=== PATIENT | female | born 1990 | race Caucasian/White ===

== ENCOUNTER 2016-12-24 19:36 | Emergency (ER) | payer MEDICAID, OTHER ==
[~2016-12-24] VITALS: Ht 167.6 cm; Wt 67.5 kg
[2016-12-24 19:40] VITALS: Ht 167.6 cm; Wt 67.5 kg
[2016-12-24] MEDS ORDERED: IBUPROFEN 600 MG TAB PO ONE (22:00)
--- NOTE | 2016-12-24 23:35 | RADRPT ---
PROCEDURE: XR ribs . CLINICAL INDICATION: Left rib pain. TECHNIQUE: AP and oblique views of the left ribs were obtained. COMPARISON: Plain film chest dated 03/22/2012. FINDINGS: The bone mineralization is normal. There is no acute fracture or subluxation. The soft tissues are unremarkable. IMPRESSION: No acute fracture. RPTAT: [facility] Physician Mavis Date Time Electronically viewed and signed by Physician Mavis on 12/24/2016 23:35 RS/
--- NOTE | 2016-12-24 23:55 | RADRPT ---
PROCEDURE: CERVICAL SPINE - 3 VIEWS CLINICAL INDICATION: 26-year-old female with neck pain. TECHNIQUE: AP, lateral and odontoid views of the cervical spine were performed. The images were re viewed on a PACS workstation. COMPARISON: None. FINDINGS: The prevertebral soft tissue is unremarkable. There is a normal cervical lordosis. The alignment condon s a normal appearance. No evidence of acute cervical spine fracture or subluxation is seen. The odon toid and lateral masses of C1 appear intact. IMPRESSION: Unremarkable cervical spine radiographs. .Momo Ness MD, MD Date Time Electronically viewed and signed by .Momo Ness MD, on 12/24/2016 23:55 .M/
[2016-12-25] MEDS ORDERED: CYCL-319 PO (00:01)
[2016-12-25 01:10] VITALS: BP 120/62; PULSE 89; RESP 18; TEMP 99.4
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
== END 2016-12-25 01:12 | disposition home or self-care (01) ==
LOC: FTE 19:36
DX: S19.9XXA Unspecified injury of neck, initial encounter (principal); F17.210 Nicotine dependence, cigarettes, uncomplicated; Y08.89XA Assault by other specified means, initial encounter; Y92.9 Unspecified place or not applicable
CPT/HCPCS: 71100; 72040; Z7610

== ENCOUNTER 2017-01-17 12:41 | Emergency (ER) | payer SELFPAY ==
[~2017-01-17] VITALS: Wt 68.0 kg
[~2017-01-17 12:41] MED LIST: CYCL-319 PO
== END 2017-01-17 15:50 | disposition left against medical advice (07) ==
LOC: FTE 12:41
DX: Z53.21 Procedure and treatment not carried out due to patient leaving prior to being seen by health care provider (principal)

== ENCOUNTER 2017-01-19 15:54 | Emergency (ER) | payer OTHER ==
[~2017-01-19] VITALS: Ht 167.6 cm; Wt 62.5 kg
[2017-01-19 15:55] VITALS: Ht 167.6 cm; Wt 62.5 kg
[2017-01-19] MEDS ORDERED: morphine 4 MG/ML VIAL IV STA (16:09)
[2017-01-19] MEDS ORDERED: SOD CHLORIDE 0.9% 1,000 ML IV STA (16:09)
[2017-01-19] MEDS ORDERED: ONDANSETRON 4 MG INJ IV STA (16:09)
[2017-01-19 16:44] LABS: BASOPHIL # 0.1 10^3/ul (0.0-0.1); BASOPHILS % 0.9 % (0.0-2.0); EOSINOPHILS # 0.2 10^3/ul (0.0-0.5); EOSINOPHILS % 2.2 % (0.0-7.0); HEMATOCRIT 43.1 % (37.0-47.0); HEMOGLOBIN 14.8 g/dl (12.0-16.0); LYMPHOCYTES # 2.1 10^3/ul (0.8-2.9); LYMPHOCYTES % 24.2 % (15.0-51.0); MEAN CORPUSCULAR HEMOGLOBIN 32.2 pg (29.0-33.0); MEAN CORPUSCULAR HGB CONC 34.3 g/dl (32.0-37.0); MEAN CORPUSCULAR VOLUME 93.9 fl (82.0-101.0); MEAN PLATELET VOLUME 9.5 fl (7.4-10.4); MONOCYTE # 0.9 10^3/ul (0.3-0.9); MONOCYTES % 9.9 % (0.0-11.0); NEUTROPHIL # 5.4 10^3/ul (1.6-7.5); NEUTROPHILS % 62.5 % (39.0-77.0); PLATELET COUNT 322 10^3/UL (140-415); RED BLOOD COUNT 4.59 10^6/ul (4.20-5.40); WHITE BLOOD COUNT 8.6 10^3/ul (4.8-10.8)
[2017-01-19 16:50] LABS: ADD UMIC YES; UR ASCORBIC ACID NEGATIVE (NEGATIVE); UR BILIRUBIN (Dip) NEGATIVE (NEGATIVE); UR BLOOD (Dip) NEGATIVE (NEGATIVE); UR CLARITY CLEAR (CLEAR); UR COLOR YELLOW (YELLOW); UR GLUCOSE (Dip) NEGATIVE (NEGATIVE); UR KETONES (Dip) NEGATIVE (NEGATIVE); UR LEUKOCYTE ESTERASE (Dip) NEGATIVE Leu/ul (NEGATIVE); UR MUCUS FEW /HPF (NONE SEEN); UR NITRITE (Dip) NEGATIVE (NEGATIVE); UR RBC 3 /HPF (0-5); UR TOTAL PROTEIN (Dip) 1+ mg/dl (NEGATIVE); UR UROBILINOGEN (Dip) NEGATIVE (NEGATIVE)
[2017-01-19 17:09] LABS: ALBUMIN 4.8 g/dl (3.3-4.9); ALBUMIN/GLOBULIN RATIO 1.37; BILIRUBIN,INDIRECT 0.2 mg/dl (0-1.1); BILIRUBIN,TOTAL 0.2 mg/dl (0.2-1.3); CALCIUM 9.8 mg/dl (8.4-10.2); CREATININE 0.86 mg/dl (0.44-1.00); POTASSIUM 4.1 mmol/L (3.5-5.1); TOTAL PROTEIN 8.3 g/dl (6.1-8.1)
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
[2017-01-19] MEDS ORDERED: ONDA4TAB14 PO (18:43)
[2017-01-19] MEDS ORDERED: OXYC-279 PO (18:43)
[2017-01-19] MEDS ORDERED: NAPR-688 PO (18:43)
[2017-01-19] MEDS ORDERED: DIPH1TAB PO (18:44)
--- NOTE | 2017-01-19 18:47 | ERD ---
ER Documentation Chief Complaint Date/Time DATE: 01/19/17 TIME: 18:44 Chief Complaint 5/10 abd pain with N/V/D x 3 days HPI This 27-year-old female presented for upper abdominal pain along with nausea vomiting and diarrhea for 3 days. States she also had similar symptoms a week ago as well. Vomiting is nonbloody and nonbilious. Pain is described as a crampy pain. ROS All systems reviewed and are negative except as per history of present illness. Medications Home Meds Active Scripts Diphenoxylate HCl/Atropine (Lomotil 2.5-0.025 mg Tablet) 1 Each Tablet, 1 TAB PO Q6H Y for DIARRHEA, #10 TAB Prov:AIDEEFREEDOM DO 01/19/17 Ondansetron (Ondansetron Odt) 4 Mg Tab.rapdis, 4 MG PO Q6H Y for NAUSEA AND/OR VOMITING, #10 TAB Prov:AIDEEFREEDOM DO 01/19/17 Naproxen* (Naproxen*) 500 Mg Tablet, 500 MG PO BID, #20 TAB Prov:AIDEEFREEDOM DO 01/19/17 Oxycodone HCl/Acetaminophen (Percocet 5-325 mg Tablet) 1 Each Tablet, 1 EACH PO Q6, #14 TAB Prov:AIDEEFREEDOM DO 01/19/17 Cyclobenzaprine Hcl* (Cyclobenzaprine Hcl*) 10 Mg Tablet, 10 MG PO TID, #15 TAB Prov:GURINDER LYN PA-C 12/25/16 Allergies Allergies: Coded Allergies: codeine (Verified Allergy, Unknown, 01/19/17) PMhx/Soc History of Surgery: No Anesthesia Reaction: No Hx Neurological Disorder: No Hx Respiratory Disorders: No Hx Cardiac Disorders: No Hx Psychiatric Problems: No Hx Miscellaneous Medical Probl: No Hx Alcohol Use: Yes (few drinks/ week) Hx Substance Use: No Hx Tobacco Use: Yes (1 pack every 2-3 days) Smoking Status: Current some day smoker Physical Exam Vitals Vital Signs Date Time Temp Pulse Resp B/P Pulse Ox O2 Delivery O2 Flow Rate FiO2 01/19/17 15:55 98.2 102 16 134/65 98 Physical Exam Const: [] Mild distress Head: Atraumatic Eyes: Normal Conjunctiva ENT: Normal External Ears, Nose and Mouth. Neck: Full range of motion..~ No meningismus. Resp: Clear to auscultation bilaterally Cardio: Regular rate and rhythm, no murmurs Abd: Soft, mild epigastric tenderness without guarding or rebound non distended. Normal bowel sounds Skin: No petechiae or rashes Back: No midline or flank tenderness Ext: No cyanosis, or edema Neur: Awake and alert and oriented 3, no focal deficits Psych: Normal Mood and Affect Result Diagram: 01/19/17 1615 01/19/17 1615 Results 24 hrs Laboratory Tests Test 01/19/17 16:15 White Blood Count 8.610^3/ul Red Blood Count 4.5910^6/ul Hemoglobin 14.8g/dl Hematocrit 43.1% Mean Corpuscular Volume 93.9fl Mean Corpuscular Hemoglobin 32.2pg Mean Corpuscular Hemoglobin Concent 34.3g/dl Red Cell Distribution Width 12.0% Platelet Count 74416^3/UL Mean Platelet Volume 9.5fl Neutrophils % 62.5% Lymphocytes % 24.2% Monocytes % 9.9% Eosinophils % 2.2% Basophils % 0.9% Nucleated Red Blood Cells % 0.0/100WBC Neutrophils # 5.410^3/ul Lymphocytes # 2.110^3/ul Monocytes # 0.910^3/ul Eosinophils # 0.210^3/ul Basophils # 0.110^3/ul Nucleated Red Blood Cells # 0.010^3/ul Urine Color YELLOW Urine Clarity CLEAR Urine pH 9.0 Urine Specific [place] 1.020 Urine Ketones NEGATIVEmg/dL Urine Nitrite NEGATIVEmg/dL Urine Bilirubin NEGATIVEmg/dL Urine Urobilinogen NEGATIVEmg/dL Urine Leukocyte Esterase NEGATIVELeu/ul Urine Microscopic RBC 3/HPF Urine Microscopic WBC 0/HPF Urine Mucus FEW/HPF Urine Hemoglobin NEGATIVEmg/dL Urine Glucose NEGATIVEmg/dL Urine Total Protein 1+mg/dl Sodium Level 145mmol/L Potassium Level 4.1mmol/L Chloride Level 96mmol/L Carbon Dioxide Level 30mmol/L Anion Gap 23 Blood Urea Nitrogen 11mg/dl Creatinine 0.86mg/dl Glucose Level 100mg/dl Calcium Level 9.8mg/dl Total Bilirubin 0.2mg/dl Direct Bilirubin 0.00mg/dl Indirect Bilirubin 0.2mg/dl Aspartate Amino Transf (AST/SGOT) 23IU/L Alanine Aminotransferase (ALT/SGPT) 20IU/L Alkaline Phosphatase 75IU/L Total Protein 8.3g/dl Albumin 4.8g/dl Globulin 3.50g/dl Albumin/Globulin Ratio 1.37 Lipase 71U/L Current Medications Medications (Trade) Dose Ordered Sig/Neftali Route PRN Reason Start Time Stop Time Status Last Admin Dose Admin Sodium Chloride (NS) 1,000 ml @ 1,000 mls/hr Q1H STAT IV 01/19/17 16:09 01/19/17 17:08 DC 01/19/17 16:33 Morphine Sulfate (morphine) 4 mg ONCE STAT IV 01/19/17 16:09 01/19/17 16:11 DC Ondansetron HCl (Zofran Inj) 4 mg ONCE STAT IV 01/19/17 16:09 01/19/17 16:11 DC Procedures/MDM Likely viral gastroenteritis. No signs of serious bacterial infection. Patient was hydrated with normal saline given 4 mg of morphine and 4 of Zofran IV. This made her feel much better and resolved her nausea completely. I discussed the risks of the CAT scan radiation on exam and possible future cancer with her and that I believed considering the diarrhea diagnosis was was likely gastroenteritis. She wanted a CAT scan to be sure. CAT scan is negative for any surgical process. Going to discharge her with naproxen, Percocet, Lomotil, Zofran ODT. Return precautions primary care follow-up given. CT abdomen pelvis interpretation: I see no acute process, see no abnormal fat stranding, I see no obstruction, I see no free air, no fracture Departure Diagnosis: Primary Impression: Nausea, vomiting, and diarrhea Additional Impression: Abdominal pain Condition: Stable Referrals: [facility] YOU HAVE RECEIVED A MEDICAL SCREENING EXAM AND THE RESULTS INDICATE THAT YOU DO NOT HAVE A CONDITION THAT REQUIRES URGENT TREATMENT IN THE EMERGENCY DEPARTMENT. FURTHER EVALUATION AND TREATMENT OF YOUR CONDITION CAN WAIT UNTIL YOU ARE SEEN IN YOUR DOCTORS OFFICE WITHIN THE NEXT 1-2 DAYS. IT IS YOUR RESPONSIBILITY TO MAKE AN APPOINTMENT FOR FOLOW-UP CARE. IF YOU HAVE A PRIMARY DOCTOR --you should call your primary doctor and schedule an appointment IF YOU DO NOT HAVE A PRIMARY DOCTOR YOU CAN CALL OUR PHYSICIAN REFERRAL HOTLINE AT IF YOU CAN NOT AFFORD TO SEE A PHYSICIAN YOU CAN CHOSE FROM THE FOLLOWING [facility] [address] [facility] [address] [facility] [address] [facility] [address] [facility] [address] [facility]. [facility]. [address] Additional Instructions: Call your primary care doctor TOMORROW for an appointment during the next 2-3 days.See the doctor sooner or return here if your condition worsens before your appointment time. FREEDOM HOSKINS DO Jan 19, 2017 18:47
== END 2017-01-19 19:32 | disposition home or self-care (01) ==
LOC: FTE 15:54
DX: R11.2 Nausea with vomiting, unspecified (principal); R19.7 Diarrhea, unspecified; R10.13 Epigastric pain; F17.210 Nicotine dependence, cigarettes, uncomplicated
CPT/HCPCS: 36415; 74176; 80053; 81001; 83690; 85025; J2405; J7030; Z7502; J2270

== ENCOUNTER 2017-01-25 11:16 | Emergency (ER) | payer OTHER ==
[~2017-01-25] VITALS: Ht 167.6 cm; Wt 62.0 kg
[~2017-01-25 11:16] MED LIST changes: +DIPH1TAB PO; +NAPR-688 PO; +ONDA4TAB14 PO; +OXYC-279 PO
[2017-01-25 11:18] VITALS: Ht 167.6 cm; Wt 62.0 kg
[2017-01-25] MEDS ORDERED: SOD CHLORIDE 0.9% 1,000 ML IV STA (11:37)
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
[2017-01-25 12:09] LABS: BASOPHIL # 0.1 10^3/ul (0.0-0.1); BASOPHILS % 0.5 % (0.0-2.0); EOSINOPHILS # 0.1 10^3/ul (0.0-0.5); EOSINOPHILS % 0.5 % (0.0-7.0); HEMATOCRIT 38.9 % (37.0-47.0); HEMOGLOBIN 13.5 g/dl (12.0-16.0); LYMPHOCYTES # 2.1 10^3/ul (0.8-2.9); LYMPHOCYTES % 17.4 % (15.0-51.0); MEAN CORPUSCULAR HEMOGLOBIN 32.5 pg (29.0-33.0); MEAN CORPUSCULAR HGB CONC 34.7 g/dl (32.0-37.0); MEAN CORPUSCULAR VOLUME 93.7 fl (82.0-101.0); MEAN PLATELET VOLUME 9.5 fl (7.4-10.4); MONOCYTES % 8.9 % (0.0-11.0); NEUTROPHIL # 8.5 10^3/ul (1.6-7.5); NEUTROPHILS % 72.4 % (39.0-77.0); PLATELET COUNT 318 10^3/UL (140-415); RED BLOOD COUNT 4.15 10^6/ul (4.20-5.40); RED CELL DISTRIBUTION WIDTH 12.3 % (11.5-14.5); WHITE BLOOD COUNT 11.8 10^3/ul (4.8-10.8)
[2017-01-25 12:14] LABS: BARBITURATES Negative (NEGATIVE)
[2017-01-25 12:22] LABS: BENZODIAZEPINES Negative (NEGATIVE); CANNABINOIDS Negative (NEGATIVE); COCAINE Positive (NEGATIVE); OPIATES Negative (NEGATIVE)
[2017-01-25 12:24] LABS: ALBUMIN/GLOBULIN RATIO 1.47; BILIRUBIN,INDIRECT 0.2 mg/dl (0-1.1); BILIRUBIN,TOTAL 0.2 mg/dl (0.2-1.3); CREATININE 0.79 mg/dl (0.44-1.00); POTASSIUM 3.9 mmol/L (3.5-5.1); TOTAL PROTEIN 8.4 g/dl (6.1-8.1)
[2017-01-25 13:05] LABS: ACETAMINOPHEN < 10.0 ug/ml (10.0-30.0); ETHANOL < 10.0 mg/dl; SALICYLATE < 1.0 mg/dl (5.0-30.0)
== END 2017-01-25 13:43 | disposition home or self-care (01) ==
LOC: FTE 11:16
DX: F41.9 Anxiety disorder, unspecified (principal)
CPT/HCPCS: 80053; 80306; 80307; 85025; J7030; 36415

== ENCOUNTER 2017-01-26 18:24 | Emergency (ER) | payer OTHER ==
[~2017-01-26] VITALS: Ht 167.6 cm; Wt 59.1 kg
[2017-01-26 18:29] VITALS: Ht 167.6 cm; Wt 59.1 kg
== END 2017-01-26 23:31 | disposition left against medical advice (07) ==
LOC: FTE 18:24 → E/R 23:31
DX: Z53.21 Procedure and treatment not carried out due to patient leaving prior to being seen by health care provider (principal)